=== PATIENT | female | born 1955 | race Caucasian/White ===

== ENCOUNTER 2018-07-28 19:26 | Emergency (ER) | payer BC, OTHER ==
[2018-07-28] MEDS ORDERED: Albuterol/Ipratropium 3.0-0.5 MG/3 ML Neb Soln NEB ONE ×2 (19:28→20:03)
[2018-07-28] MEDS ORDERED: methylPREDNISolone Sodium Succinate 125 MG/2 ML SDV IVPUSH ONE (19:28)
--- NOTE | 2018-07-28 19:28 | EDM.PDOC ---
ED HPI GENERAL MEDICAL PROBLEM - General Chief Complaint: Respiratory Problem Stated Complaint: TAKEN BY NURSE Time Seen by Provider: 07/28/18 19:26 Source of Information: Reports: Patient History Limitations: Reports: No Limitations - History of Present Illness INITIAL COMMENTS - FREE TEXT/NARRATIVE: HISTORY AND PHYSICAL: History of present illness: Patient is a 62-year-old female who presents to the emergency room with complaints of shortness of breath and chest tightness. She states he symptoms have been ongoing for the past 2 days. Yesterday she was evaluated in the clinic and was diagnosed with a sinus infection and did start Amoxicillin this morning. Today she was exposed to multiple perfumes and believes this increased her respiratory symptoms. Patient denies any fever, chills, headache, change in vision, syncope or near syncope. Denies any chest pain, back pain or cough. Denies any abdominal pain, nausea, vomiting, diarrhea, constipation or dysuria. Has not noted any blood in urine or stool. Patient has been eating and drinking appropriately. Current 1 ppd smoker; 30 years. No previous respiratory or cardiac diseases. Review of systems: As per history of present illness and below otherwise all systems reviewed and negative. Past medical history: As per history of present illness and as reviewed below otherwise noncontributory. Surgical history: As per history of present illness and as reviewed below otherwise noncontributory. Social history: See social history for further information Family history: As per history of present illness and as reviewed below otherwise noncontributory. Physical exam: General: Well-developed and well-nourished 62-year-old female. Alert and oriented. Nontoxic appearing and in no acute distress. HEENT: Atraumatic, normocephalic, pupils equal and reactive bilaterally, negative for conjunctival pallor or scleral icterus, mucous membranes moist, trachea midline. No drooling or trismus noted. No meningeal signs. No hot potato voice noted. Lungs: Inspiratory wheezing to upper airways or laterally, breath sounds equal bilaterally, chest nontender. Heart: S1S2, regular rate and rhythm without overt murmur Abdomen: Soft, nondistended, obese, nontender. Negative for masses. Skin: Intact, warm, dry. No lesions or rashes noted. Extremities: Atraumatic, moves all extremities per self without difficulty or deficits, negative for cords or calf pain. Neurovascular unremarkable. Neuro: Awake, alert, oriented. Cranial nerves II through XII unremarkable. Cerebellum unremarkable. Motor and sensory unremarkable throughout. Exam nonfocal. Notes: Lab work is unremarkable. Unremarkable chest x-ray. She did feel improvement after the breathing treatments. Lung sounds have improved. Vital signs are stable and have been reviewed by me. Supportive care measures were reviewed and discussed. Voices understanding and is agreeable to plan of care. Denies any further questions or concerns at this time. Diagnostics: CBC, CMP, troponin, EKG, 2 view chest x-ray Therapeutics: DuoNeb, Solu-Medrol Prescription: Medrol Dosepak Pro-air inhaler Impression: Upper Respiratory Illness Reactive Airway Disease Plan: 1. Stop smoking 2. Continue your antibiotic. Take the steroid and inhaler as directed. 3. Follow up with your primary care provider. Return to the ED as needed and as discussed. Definitive disposition and diagnosis as appropriate pending reevaluation and review of above. - Related Data Allergies Allergy/AdvReac Type Severity Reaction Status Date / Time loratadine [From Claritin] Allergy Rash Verified 07/28/18 19:27 Home Meds: Home Meds . [No Known Home Meds] 01/19/17 [History] Past Medical History - Past Surgical History GI Surgical History: Reports: Cholecystectomy Female Surgical History: Reports: Section, Hysterectomy Social & Family History - Caffeine Use Caffeine Use: Reports: Soda ED ROS GENERAL - Review of Systems Review Of Systems: ROS reveals no pertinent complaints other than HPI. ED EXAM, GENERAL - Physical Exam Exam: See Below (See dictation) Course - Vital Signs Last Recorded V/S: Last Vital Signs Temp 97.8 F 07/28/18 19:28 Pulse 83 07/28/18 19:28 Resp 30 H 07/28/18 19:28 BP 152/86 H 07/28/18 19:30 Pulse Ox 97 07/28/18 19:28 - Orders/Labs/Meds Orders: Active Orders 24 hr Category Date Time Status EKG Documentation Completion [RC] STAT Care 07/28/18 19:29 Active RT Aerosol Therapy [RC] ASDIRECTED Care 07/28/18 19:28 Active RT Aerosol Therapy [RC] ASDIRECTED Care 07/28/18 20:03 Active Labs: Laboratory Tests 07/28/18 07/28/18 Range/Units 19:30 19:30 WBC 11.47 H (4.0-11.0) K/uL RBC 5.51 (4.30-5.90) M/uL Hgb 15.9 (12.0-16.0) g/dL Hct 47.2 H (36.0-46.0) % MCV 85.7 (80.0-98.0) fL MCH 28.9 (27.0-32.0) pg MCHC 33.7 (31.0-37.0) g/dL RDW Std Deviation 46.3 (28.0-62.0) fl RDW Coeff of Kemi 15 (11.0-15.0) % Plt Count 274 (150-400) K/uL MPV 9.90 (7.40-12.00) fL Neut % (Auto) 60.8 (48.0-80.0) % Lymph % (Auto) 31.1 (16.0-40.0) % Amite % (Auto) 5.3 (0.0-15.0) % Eos % (Auto) 2.5 (0.0-7.0) % Baso % (Auto) 0.3 (0.0-1.5) % Neut # (Auto) 7.0 H (1.4-5.7) K/uL Lymph # (Auto) 3.6 H (0.6-2.4) K/uL Amite # (Auto) 0.6 (0.0-0.8) K/uL Eos # (Auto) 0.3 (0.0-0.7) K/uL Baso # (Auto) 0.0 (0.0-0.1) K/uL Nucleated RBC % 0.0 /100WBC Nucleated RBCs # 0 K/uL Sodium 141 (136-145) mmol/L Potassium 3.9 (3.5-5.1) mmol/L Chloride 105 (98-107) mmol/L Carbon Dioxide 25.6 (21.0-32.0) mmol/L BUN 18 (7.0-18.0) mg/dL Creatinine 0.8 (0.6-1.0) mg/dL Est Cr Clr Drug Dosing 59.15 mL/min Estimated GFR (MDRD) > 60.0 ml/min Glucose 114 H (74-106) mg/dL Calcium 8.9 (8.5-10.1) mg/dL Total Bilirubin 0.4 (0.2-1.0) mg/dL AST 20 (15-37) IU/L ALT 22 (14-63) IU/L Alkaline Phosphatase 118 H (46-116) U/L Troponin I < 0.050 (0.000-0.056) ng/mL Total Protein 7.4 (6.4-8.2) g/dL Albumin 3.7 (3.4-5.0) g/dL Globulin 3.7 (2.6-4.0) g/dL Albumin/Globulin Ratio 1.0 (0.9-1.6) Meds: Medications Discontinued Medications Generic Name Dose Route Start Last Admin Trade Name Robertq PRN Reason Stop Dose Admin Albuterol/Ipratropium 3 ml 07/28/18 19:28 07/28/18 19:36 Duoneb 3.0-0.5 Mg/3 Ml NEB 07/28/18 19:29 3 ml ONETIME ONE Administration Albuterol/Ipratropium 3 ml 07/28/18 20:03 07/28/18 20:12 Duoneb 3.0-0.5 Mg/3 Ml NEB 07/28/18 20:04 3 ml ONETIME ONE Administration Methylprednisolone Sodium Succinate 125 mg 07/28/18 19:28 07/28/18 19:39 Solu-Medrol IVPUSH 07/28/18 19:29 125 mg ONETIME ONE Administration Departure - Departure Time of Disposition: 20:28 Disposition: Home, Self-Care 01 Clinical Impression: Upper respiratory infection, viral Reactive airway disease Qualifiers: Asthma severity: unspecified severity Asthma persistence: unspecified Asthma complication type: uncomplicated Qualified Code(s): J45.909 - Unspecified asthma , uncomplicated - Discharge Information Instructions: Upper Respiratory Infection, Adult, [id number] Forms: ED Department Discharge Additional Instructions: The following information is given to patients seen in the emergency department who are being discharged to home. This information is to outline your options for follow-up care. We provide all patients seen in our emergency department with a follow-up referral. The need for follow-up, as well as the timing and circumstances, are variable depending upon the specifics of your emergency department visit. If you don't have a primary care physician on staff, we will provide you with a referral. We always advise you to contact your personal physician following an emergency department visit to inform them of the circumstance of the visit and for follow-up with them and/or the need for any referrals to a consulting specialist. The emergency department will also refer you to a specialist when appropriate. This referral assures that you have the opportunity for follow-up care with a specialist. All of these measure are taken in an effort to provide you with optimal care, which includes your follow-up. Under all circumstances we always encourage you to contact your private physician who remains a resource for coordinating your care. When calling for follow-up care, please make the office aware that this follow-up is from your recent emergency room visit. If for any reason you are refused follow-up, please contact the [facility] Emergency Department at and asked to speak to the emergency department charge nurse. [facility] [address] [place] [id number] [place] [address] 1. Stop smoking 2. Continue your antibiotic. Take the steroid and inhaler as directed. 3. Follow up with your primary care provider. Return to the ED as needed and as discussed. - My Orders Last 24 Hours: My Active Orders 07/28/18 19:28 RT Aerosol Therapy [RC] ASDIRECTED 07/28/18 19:29 EKG Documentation Completion [RC] STAT 07/28/18 20:03 RT Aerosol Therapy [RC] ASDIRECTED - Assessment/Plan Last 24 Hours: My Active Orders 07/28/18 19:28 RT Aerosol Therapy [RC] ASDIRECTED 07/28/18 19:29 EKG Documentation Completion [RC] STAT 07/28/18 20:03 RT Aerosol Therapy [RC] ASDIRECTED
[2018-07-28 19:59] LABS: CHLORIDE,CL 105 mmol/L (98-107); SODIUM,NA 141 mmol/L (136-145)
--- NOTE | 2018-07-28 20:21 | CR ---
INDICATION: SOB x2 days TECHNIQUE: Chest 2 views. COMPARISON: None. FINDINGS: Cardiovascular and mediastinum: Heart size and vasculature are normal in caliber and appearance. Mediastinum is within normal limits. Lungs and pleural spaces: Lungs are clear. No sign of infiltrate or mass. No sign of pleural effusion. No pneumothorax. Bones and soft tissues: No significant findings. IMPRESSION: Unremarkable chest. Dictated by: Jeffrey Ghosh MD @ 07/28/2018 20:19:30 (Electronically Signed)
== END 2018-07-28 20:38 | disposition home or self-care (01) ==
LOC: MW.ED 19:26
DX: J06.9 Acute upper respiratory infection, unspecified (principal); J45.909 Unspecified asthma, uncomplicated; F17.210 Nicotine dependence, cigarettes, uncomplicated
CPT/HCPCS: 36415; 71046; 80053; 84484; 85025; 93005; 94640; 96374; 99285; J2930; J7620-GY